=== PATIENT | male | born 1980 | race American Indian/Alaskan Native ===

== ENCOUNTER 2021-06-01 13:40 | Inpatient (IN) ==
[2021-06-01] MEDS ORDERED: GLUCAGON 1 MG VIAL IM PRN (15:20)
[2021-06-01] MEDS ORDERED: DEXTROSE 50% 25 GM/50 ML VIAL IV PRN (15:20)
[2021-06-01] MEDS ORDERED: ONDANSETRON 4 MG/2 ML VIAL IV PRN (15:20)
[2021-06-01 15:37] LABS: ABG Base Excess 0.4 MMOL/L (-2.5-2.5); ABG HCO3 24.7 MMOL/L (20-26); ABG Oxygen Saturation 94.1 % (95-100); ABG PCO2 42.6 MM HG (35-48); ABG PH 7.387 (7.35-7.45); ABG PO2 73.6 MM HG (80-95); ABG TCO2 22.3 MMOL/L (23-27)
[2021-06-01] MEDS: ENOXAPARIN 40 MG/0.4 ML SYRINGE SUBCUT SCH (16:07)
[2021-06-01] MEDS: AZITHROMYCIN 250 MG TABLET PO SCH (16:07)
[2021-06-01 16:20] LABS: Basophils % 0.1 % (0.0-0.8); Hematocrit 42.7 VOL% (42.0-52.0); Hemoglobin 13.8 GM/DL (14.0-18.0); Lymphocytes # 0.6 10*3/uL (1.4-4.0); Lymphocytes % 3.9 % (21.2-54.2); Mean Corpuscular HGB Conc 32.3 GM/DL (32-36); Mean Corpuscular Volume 82.9 FL (87-102); Mean Platelet Volume 9.6 FL (9.6-12.0); Monocytes % 1.7 % (1.7-12.7); Neutrophils % 93.8 % (38.7-73.9); Platelet Count 206 T/CUMM (130-400); Red Blood Count 5.15 MC/CUMM (3.8-5.5); Red Cell Distribution Width 13.8 % (9.3-17.3); White Blood Count 14.9 T/CUMM (4-12)
[2021-06-01] MEDS: DEXAMETHASONE INJ 10 MG in SODIUM CHLORIDE 0.9% 50 ML IV SCH (16:40)
[2021-06-01 16:41] LABS: Lymphocytes 2 % (20-55); Segmented Neutrophils 96 % (50-85); Total Cells Counted 100
[2021-06-01 16:43] LABS: Platelet Estimate Adequate
[2021-06-01] MEDS ORDERED: REMDESIVIR 200 MG in SODIUM CHLORIDE 0.9% 210 ML IV ONE (17:00)
[2021-06-01 17:02] LABS: Albumin 2.6 G/DL (3.4-5.0); Bilirubin,Total 0.7 MG/DL (0.20-1.00); Calcium 8.2 MG/DL (8.5-10.1); Ferritin 1549.7 ng/ml (26-388); Osmolality,Calculated 268.1 MOS/KG (273-304); Potassium 3.6 MMOL/L (3.5-5.1); Total Protein 9.1 G/DL (6.4-8.2)
[2021-06-01] MEDS: FAMOTIDINE 20 MG TABLET PO SCH (21:55)
[2021-06-01] MEDS: INSULIN REGULAR 100 UNIT/ML SUBCUT SCH (22:00)
[2021-06-02 05:26] LABS: Basophils % 0.1 % (0.0-0.8); Hematocrit 42.2 VOL% (42.0-52.0); Lymphocytes # 0.8 10*3/uL (1.4-4.0); Lymphocytes % 5.1 % (21.2-54.2); Mean Corpuscular HGB Conc 33.2 GM/DL (32-36); Mean Corpuscular Volume 83.2 FL (87-102); Mean Platelet Volume 9.8 FL (9.6-12.0); Monocytes % 2.6 % (1.7-12.7); Neutrophils % 91.7 % (38.7-73.9); Platelet Count 229 T/CUMM (130-400); Red Blood Count 5.07 MC/CUMM (3.8-5.5); Red Cell Distribution Width 14.1 % (9.3-17.3); White Blood Count 15.9 T/CUMM (4-12)
[2021-06-02 06:01] LABS: Calcium 8.5 MG/DL (8.5-10.1); Ferritin 1659.6 ng/ml (26-388); Osmolality,Calculated 275.5 MOS/KG (273-304); Potassium 3.5 MMOL/L (3.5-5.1)
[2021-06-02 06:15] LABS: Band Neutrophils 23 % (0-10); Lymphocytes 5 % (20-55); Platelet Estimate Normal; Segmented Neutrophils 67 % (50-85); Total Cells Counted 100
[2021-06-02] MEDS ORDERED: INSULIN REGULAR 100 UNIT/ML SUBCUT SCH (07:30)
[2021-06-02] MEDS: INSULIN REGULAR 100 UNIT/ML SUBCUT SCH ×4 (08:18→21:10)
[2021-06-02] MEDS: CHOLECALCIFEROL 1,000 UNIT TABLET PO SCH (08:19)
[2021-06-02] MEDS: cefTRIAXone 2,000 MG in SODIUM CHLORIDE 0.9% 100 ML IV SCH (08:19)
[2021-06-02] MEDS: AZITHROMYCIN 250 MG TABLET PO SCH (08:19)
[2021-06-02] MEDS: FAMOTIDINE 20 MG TABLET PO SCH ×2 (08:19→21:10)
[2021-06-02] MEDS: ZINC SULFATE 220 MG CAPSULE PO SCH (08:19)
[2021-06-02] MEDS: ASCORBIC ACID 500 MG TABLET PO SCH ×2 (08:19→21:10)
[2021-06-02] MEDS: DEXAMETHASONE INJ 10 MG in SODIUM CHLORIDE 0.9% 50 ML IV SCH (10:16)
[2021-06-02 11:14] LABS: Albumin 2.5 G/DL (3.4-5.0); Bilirubin,Direct 0.18 MG/DL (0.0-0.20); Bilirubin,Indirect 0.4 MG/DL (0.0-1.0); Bilirubin,Total 0.6 MG/DL (0.20-1.00); Total Protein 8.6 G/DL (6.4-8.2)
[2021-06-02] MEDS: REMDESIVIR 100 MG in SODIUM CHLORIDE 0.9% 100 ML IV SCH (13:38)
[2021-06-02 14:13] LABS: ABG Base Excess 1.8 MMOL/L (-2.5-2.5); ABG HCO3 26.6 MMOL/L (20-26); ABG Oxygen Saturation 93.9 % (95-100); ABG PCO2 42.4 MM HG (35-48); ABG PH 7.416 (7.35-7.45); ABG PO2 70.5 MM HG (80-95); ABG TCO2 27.9 MMOL/L (23-27)
[2021-06-02] MEDS: ENOXAPARIN 40 MG/0.4 ML SYRINGE SUBCUT SCH (16:04)
[2021-06-03 03:16] LABS: Basophils % 0.1 % (0.0-0.8); Hematocrit 41.7 VOL% (42.0-52.0); Hemoglobin 13.3 GM/DL (14.0-18.0); Lymphocytes # 0.9 10*3/uL (1.4-4.0); Lymphocytes % 5.5 % (21.2-54.2); Mean Corpuscular HGB Conc 31.9 GM/DL (32-36); Mean Corpuscular Volume 85.3 FL (87-102); Monocytes % 4.5 % (1.7-12.7); Neutrophils % 89.2 % (38.7-73.9); Platelet Count 298 T/CUMM (130-400); Red Blood Count 4.89 MC/CUMM (3.8-5.5); Red Cell Distribution Width 14.2 % (9.3-17.3); White Blood Count 16.6 T/CUMM (4-12)
[2021-06-03 03:43] LABS: Albumin 2.6 G/DL (3.4-5.0); Bilirubin,Total 0.5 MG/DL (0.20-1.00); Calcium 8.8 MG/DL (8.5-10.1); Osmolality,Calculated 270.9 MOS/KG (273-304); Potassium 3.5 MMOL/L (3.5-5.1); Total Protein 8.6 G/DL (6.4-8.2)
[2021-06-03] MEDS: ASCORBIC ACID 500 MG TABLET PO SCH ×2 (08:36→21:13)
[2021-06-03] MEDS: CHOLECALCIFEROL 1,000 UNIT TABLET PO SCH (08:37)
[2021-06-03] MEDS: FAMOTIDINE 20 MG TABLET PO SCH ×2 (08:37→21:13)
[2021-06-03] MEDS: AZITHROMYCIN 250 MG TABLET PO SCH (08:37)
[2021-06-03] MEDS: ZINC SULFATE 220 MG CAPSULE PO SCH (08:37)
[2021-06-03] MEDS: INSULIN REGULAR 100 UNIT/ML SUBCUT SCH ×4 (08:40→21:13)
[2021-06-03] MEDS: cefTRIAXone 2,000 MG in SODIUM CHLORIDE 0.9% 100 ML IV SCH (08:41)
[2021-06-03] MEDS: REMDESIVIR 100 MG in SODIUM CHLORIDE 0.9% 100 ML IV SCH (08:41)
[2021-06-03] MEDS ORDERED: hydrOXYzine HCL 25 MG TABLET PO PRN (12:03)
[2021-06-03] MEDS ORDERED: ALPRAZolam 0.5 MG TABLET PO PRN ×2 (12:06→18:04)
[2021-06-03] MEDS: DEXAMETHASONE INJ 10 MG in SODIUM CHLORIDE 0.9% 50 ML IV SCH (12:07)
[2021-06-03] MEDS: ENOXAPARIN 40 MG/0.4 ML SYRINGE SUBCUT SCH (15:27)
[2021-06-03 15:50] LABS: ABG Base Excess 3.8 MMOL/L (-2.5-2.5); ABG HCO3 27.6 MMOL/L (20-26); ABG Oxygen Saturation 88.9 % (95-100); ABG PCO2 41.8 MM HG (35-48); ABG PH 7.439 (7.35-7.45); ABG PO2 57.5 MM HG (80-95); ABG TCO2 24.4 MMOL/L (23-27); Allen Test Positive; Pt O2 Delivery Device BIPAP
[2021-06-04 01:53] LABS: Basophils % 0.1 % (0.0-0.8); Hematocrit 42.6 VOL% (42.0-52.0); Hemoglobin 13.7 GM/DL (14.0-18.0); Lymphocytes # 0.7 10*3/uL (1.4-4.0); Lymphocytes % 5.7 % (21.2-54.2); Mean Corpuscular HGB Conc 32.2 GM/DL (32-36); Mean Corpuscular Volume 84.7 FL (87-102); Mean Platelet Volume 9.8 FL (9.6-12.0); Monocytes % 5.6 % (1.7-12.7); Neutrophils % 87.7 % (38.7-73.9); Platelet Count 310 T/CUMM (130-400); Red Blood Count 5.03 MC/CUMM (3.8-5.5); Red Cell Distribution Width 14.1 % (9.3-17.3); White Blood Count 12.4 T/CUMM (4-12)
[2021-06-04 02:23] LABS: Albumin 2.6 G/DL (3.4-5.0); Bilirubin,Total 0.7 MG/DL (0.20-1.00); Calcium 8.3 MG/DL (8.5-10.1); Osmolality,Calculated 275.4 MOS/KG (273-304); Potassium 3.5 MMOL/L (3.5-5.1); Total Protein 8.2 G/DL (6.4-8.2)
[2021-06-04 02:31] LABS: Ferritin 1057.7 ng/ml (26-388)
[2021-06-04] MEDS: ASCORBIC ACID 500 MG TABLET PO SCH ×2 (08:35→20:30)
[2021-06-04] MEDS: FAMOTIDINE 20 MG TABLET PO SCH ×2 (08:36→20:30)
[2021-06-04] MEDS: hydrALAZINE 20 MG/1 ML VIAL IV PRN ×2 (08:36→18:09)
[2021-06-04] MEDS: AZITHROMYCIN 250 MG TABLET PO SCH (08:36)
[2021-06-04] MEDS: ZINC SULFATE 220 MG CAPSULE PO SCH (08:36)
[2021-06-04] MEDS: INSULIN REGULAR 100 UNIT/ML SUBCUT SCH ×4 (08:37→20:30)
[2021-06-04] MEDS: cefTRIAXone 2,000 MG in SODIUM CHLORIDE 0.9% 100 ML IV SCH (08:37)
[2021-06-04] MEDS: CHOLECALCIFEROL 1,000 UNIT TABLET PO SCH (08:39)
[2021-06-04] MEDS ORDERED: ENOXAPARIN 100 MG/ML SYRINGE SUBCUT ONE (09:00)
[2021-06-04] MEDS: INSULIN GLARGINE 100 UNIT/ML SUBCUT SCH (10:05)
[2021-06-04] MEDS: DEXAMETHASONE INJ 10 MG in SODIUM CHLORIDE 0.9% 50 ML IV SCH (10:05)
[2021-06-04] MEDS ORDERED: ALPRAZolam 0.5 MG TABLET PO ONE (10:25)
[2021-06-04] MEDS: MORPHINE 2 MG/1 ML SYRINGE IV PRN (10:40)
[2021-06-04] MEDS: REMDESIVIR 100 MG in SODIUM CHLORIDE 0.9% 100 ML IV SCH (13:35)
[2021-06-04] MEDS: lisinopriL 10 MG TABLET PO SCH (15:00)
[2021-06-04] MEDS: ALPRAZolam 0.5 MG TABLET PO PRN (21:28)
[2021-06-05] MEDS: MORPHINE 2 MG/1 ML SYRINGE IV PRN ×3 (00:18→20:23)
[2021-06-05 03:28] LABS: ABG Base Excess 5.3 MMOL/L (-2.5-2.5); ABG HCO3 28.9 MMOL/L (20-26); ABG Oxygen Saturation 87.9 % (95-100); ABG PCO2 43.7 MM HG (35-48); ABG PH 7.446 (7.35-7.45); ABG PO2 56.2 MM HG (80-95)
[2021-06-05 05:21] LABS: Basophils % 0.2 % (0.0-0.8); Eosinophils % 0.2 % (0.00-10.9); Hematocrit 44.6 VOL% (42.0-52.0); Immature Granulocytes % 2.6 %; Immature Granulocytes Absolute 0.34 #; Lymphocytes % 7.8 % (21.2-54.2); Mean Corpuscular HGB Conc 31.4 GM/DL (32-36); Mean Platelet Volume 10.3 FL (9.6-12.0); Monocytes % 4.4 % (1.7-12.7); Neutrophils % 84.8 % (38.7-73.9); Platelet Count 290 T/CUMM (130-400); Red Blood Count 5.25 MC/CUMM (3.8-5.5); Red Cell Distribution Width 14.3 % (9.3-17.3); White Blood Count 13.1 T/CUMM (4-12)
[2021-06-05 05:55] LABS: Albumin 2.5 G/DL (3.4-5.0); Bilirubin,Total 1.1 MG/DL (0.20-1.00); Calcium 8.2 MG/DL (8.5-10.1); Osmolality,Calculated 273.1 MOS/KG (273-304); Potassium 3.2 MMOL/L (3.5-5.1); Total Protein 8.1 G/DL (6.4-8.2)
[2021-06-05] MEDS ORDERED: POTASSIUM CHLORIDE 20 MEQ TABLET PO PRN (08:06)
[2021-06-05] MEDS: INSULIN REGULAR 100 UNIT/ML SUBCUT SCH ×4 (08:54→20:52)
[2021-06-05] MEDS: ASCORBIC ACID 500 MG TABLET PO SCH ×2 (08:57→20:23)
[2021-06-05] MEDS: CHOLECALCIFEROL 1,000 UNIT TABLET PO SCH (08:57)
[2021-06-05] MEDS: INSULIN GLARGINE 100 UNIT/ML SUBCUT SCH (08:57)
[2021-06-05] MEDS: ZINC SULFATE 220 MG CAPSULE PO SCH (08:57)
[2021-06-05] MEDS: lisinopriL 10 MG TABLET PO SCH (08:57)
[2021-06-05] MEDS: FAMOTIDINE 20 MG TABLET PO SCH ×2 (08:57→20:23)
[2021-06-05] MEDS: AZITHROMYCIN 250 MG TABLET PO SCH (08:57)
[2021-06-05] MEDS: cefTRIAXone 2,000 MG in SODIUM CHLORIDE 0.9% 100 ML IV SCH (08:57)
[2021-06-05] MEDS: REMDESIVIR 100 MG in SODIUM CHLORIDE 0.9% 100 ML IV SCH (09:37)
[2021-06-05] MEDS: DEXAMETHASONE INJ 10 MG in SODIUM CHLORIDE 0.9% 50 ML IV SCH (10:00)
[2021-06-05] MEDS: ENOXAPARIN 100 MG/ML SYRINGE SUBCUT SCH ×2 (12:05→23:54)
[2021-06-05] MEDS: POTASSIUM PHOS/SOD PHOS POWDER 250 MG PACK PO SCH ×3 (12:05→20:23)
[2021-06-05] MEDS: ALPRAZolam 0.5 MG TABLET PO PRN ×2 (13:35→20:23)
[2021-06-05] MEDS: hydrALAZINE 20 MG/1 ML VIAL IV PRN (17:00)
[2021-06-05 22:51] LABS: ABG Base Excess 5.4 MMOL/L (-2.5-2.5); ABG Oxygen Saturation 86.2 % (95-100); ABG PCO2 43.2 MM HG (35-48); ABG PO2 52.8 MM HG (80-95); ABG TCO2 26.1 MMOL/L (23-27)
[2021-06-06] MEDS ORDERED: LORazepam 2 MG/1 ML VIAL IV ONE (02:38)
[2021-06-06] MEDS: MORPHINE 2 MG/1 ML SYRINGE IV PRN (02:46)
[2021-06-06] MEDS ORDERED: HALOPERIDOL 5 MG/ML AMP ONE (03:37)
[2021-06-06] MEDS ORDERED: HALOPERIDOL 5 MG/ML AMP IM ONE (03:42)
[2021-06-06] MEDS ORDERED: ETOMIDATE 20 MG/10 ML VIAL IV ONE ×2 (04:22→05:01)
[2021-06-06] MEDS ORDERED: ROCURONIUM 100 MG/10 ML VIAL IV ONE ×2 (04:23→04:40)
[2021-06-06] MEDS ORDERED: SUCCINYLCHOLINE 200 MG/10 ML VIAL ONE (04:29)
[2021-06-06] MEDS ORDERED: SODIUM CHLORIDE 0.9% 500 ML IV ONE (04:43)
[2021-06-06] MEDS ORDERED: propofoL 200 MG/20 ML VIAL IV ONE (05:02)
[2021-06-06 05:06] LABS: ABG Base Excess -2.2 MMOL/L (-2.5-2.5); ABG HCO3 22.2 MMOL/L (20-26); ABG Oxygen Saturation 81.4 % (95-100); ABG PCO2 63.5 MM HG (35-48); ABG PH 7.239 (7.35-7.45); ABG PO2 58.5 MM HG (80-95); ABG TCO2 24.2 MMOL/L (23-27); Allen Test Positive; Pt O2 Delivery Device Ventilator
[2021-06-06] MEDS ORDERED: METOPROLOL TARTRATE 5 MG/5 ML VIAL IV ONE (05:22)
[2021-06-06] MEDS ORDERED: fentaNYL INJ 1,250 MCG in SODIUM CHLORIDE 0.9% 225 ML IV PRN (06:21)
[2021-06-06 06:56] LABS: ABG Base Excess -1.2 MMOL/L (-2.5-2.5); ABG HCO3 23.1 MMOL/L (20-26); ABG Oxygen Saturation 85.4 % (95-100); ABG PH 7.225 (7.35-7.45); ABG PO2 64.6 MM HG (80-95); ABG TCO2 25.8 MMOL/L (23-27)
[2021-06-06 06:58] LABS: ABG PCO2 69.2 MM HG (35-48)
[2021-06-06] MEDS: ROCURONIUM 500 MG in SODIUM CHLORIDE 0.9% 500 ML IV PRN ×2 (07:00→12:37)
[2021-06-06 08:58] LABS: Basophils # 0.1 10*3/uL (0.0-0.2); Basophils % 0.3 % (0.0-0.8); Hematocrit 41.5 VOL% (42.0-52.0); Hemoglobin 12.8 GM/DL (14.0-18.0); Immature Granulocytes % 3.1 %; Lymphocytes # 0.6 10*3/uL (1.4-4.0); Lymphocytes % 2.8 % (21.2-54.2); Mean Corpuscular HGB Conc 30.8 GM/DL (32-36); Mean Corpuscular Volume 87.9 FL (87-102); Mean Platelet Volume 10.1 FL (9.6-12.0); Monocytes % 3.6 % (1.7-12.7); Neutrophils % 90.2 % (38.7-73.9); Platelet Count 331 T/CUMM (130-400); Red Blood Count 4.72 MC/CUMM (3.8-5.5); Red Cell Distribution Width 14.6 % (9.3-17.3); White Blood Count 22.3 T/CUMM (4-12)
[2021-06-06] MEDS ORDERED: MIDAZOLAM 2 MG/2 ML VIAL ONE (09:06)
[2021-06-06] MEDS ORDERED: SODIUM BICARBONATE 50 MEQ/50 ML VIAL IV ONE (09:10)
[2021-06-06] MEDS: NOREPINEPHRINE 8 MG in SODIUM CHLORIDE 0.9% 242 ML IV PRN ×2 (09:15→19:19)
[2021-06-06 09:24] LABS: Band Neutrophils 2 % (0-10); Hypochromasia 1+; Lymphocytes 1 % (20-55); Microcytosis 1+; Platelet Estimate Adequate; Segmented Neutrophils 93 % (50-85); Total Cells Counted 100
[2021-06-06 09:26] LABS: Calcium 7.6 MG/DL (8.5-10.1); Osmolality,Calculated 279.1 MOS/KG (273-304); Potassium 4.1 MMOL/L (3.5-5.1)
[2021-06-06] MEDS ORDERED: MIDAZOLAM 2 MG/2 ML VIAL IV ONE (09:30)
[2021-06-06] MEDS: DEXAMETHASONE INJ 10 MG in SODIUM CHLORIDE 0.9% 50 ML IV SCH (10:20)
[2021-06-06] MEDS: INSULIN REGULAR 100 UNIT/ML SUBCUT SCH ×3 (10:32→18:23)
[2021-06-06] MEDS: FAMOTIDINE 20 MG TABLET PO SCH ×2 (10:33→20:56)
[2021-06-06] MEDS: CHOLECALCIFEROL 1,000 UNIT TABLET PO SCH (10:33)
[2021-06-06] MEDS: ASCORBIC ACID 500 MG TABLET PO SCH ×2 (10:33→20:56)
[2021-06-06] MEDS: INSULIN GLARGINE 100 UNIT/ML SUBCUT SCH (10:33)
[2021-06-06] MEDS: ZINC SULFATE 220 MG CAPSULE PO SCH (10:34)
[2021-06-06] MEDS: MIDAZOLAM 100 MG in SODIUM CHLORIDE 0.9% 80 ML IV PRN ×2 (10:50→17:15)
[2021-06-06] MEDS: lisinopriL 10 MG TABLET PO SCH (10:54)
[2021-06-06] MEDS: fentaNYL INJ 2,500 MCG in SODIUM CHLORIDE 0.9% 75 ML IV PRN ×2 (12:46→20:13)
[2021-06-06] MEDS: cefTRIAXone 2,000 MG in SODIUM CHLORIDE 0.9% 100 ML IV SCH (13:00)
[2021-06-06] MEDS: ENOXAPARIN 100 MG/ML SYRINGE SUBCUT SCH (13:01)
[2021-06-06] MEDS: ROCURONIUM 1,000 MG in SODIUM CHLORIDE 0.9% 175 ML IV PRN (17:30)
[2021-06-06] MEDS ORDERED: INSULIN GLARGINE 100 UNIT/ML SUBCUT ONE (21:00)
[2021-06-07] MEDS: ENOXAPARIN 100 MG/ML SYRINGE SUBCUT SCH ×2 (00:13→13:49)
[2021-06-07] MEDS: INSULIN REGULAR 100 UNIT/ML SUBCUT SCH ×4 (00:13→18:38)
[2021-06-07 04:13] LABS: ABG Base Excess 1.8 MMOL/L (-2.5-2.5); ABG HCO3 28.8 MMOL/L (20-26); ABG Oxygen Saturation 97.9 % (95-100); ABG PCO2 55.5 MM HG (35-48); ABG PH 7.333 (7.35-7.45); ABG PO2 112.5 MM HG (80-95); ABG TCO2 30.5 MMOL/L (23-27)
[2021-06-07] MEDS: fentaNYL INJ 2,500 MCG in SODIUM CHLORIDE 0.9% 75 ML IV PRN ×3 (04:18→18:30)
[2021-06-07] MEDS: ROCURONIUM 1,000 MG in SODIUM CHLORIDE 0.9% 175 ML IV PRN ×2 (04:18→15:31)
[2021-06-07 04:29] LABS: Basophils # 0.1 10*3/uL (0.0-0.2); Basophils % 0.4 % (0.0-0.8); Eosinophils % 0.1 % (0.00-10.9); Hematocrit 39.6 VOL% (42.0-52.0); Hemoglobin 12.2 GM/DL (14.0-18.0); Immature Granulocytes % 5.1 %; Immature Granulocytes Absolute 0.96 #; Lymphocytes # 0.7 10*3/uL (1.4-4.0); Lymphocytes % 3.5 % (21.2-54.2); Mean Corpuscular HGB Conc 30.8 GM/DL (32-36); Mean Corpuscular Volume 88.8 FL (87-102); Mean Platelet Volume 9.5 FL (9.6-12.0); Monocytes % 4.6 % (1.7-12.7); Neutrophils % 86.3 % (38.7-73.9); Platelet Count 424 T/CUMM (130-400); Red Blood Count 4.46 MC/CUMM (3.8-5.5); Red Cell Distribution Width 15.1 % (9.3-17.3); White Blood Count 18.9 T/CUMM (4-12)
[2021-06-07 04:53] LABS: Calcium 7.3 MG/DL (8.5-10.1); Osmolality,Calculated 288.7 MOS/KG (273-304); Potassium 4.3 MMOL/L (3.5-5.1)
[2021-06-07 04:54] LABS: Lymphocytes 3 % (20-55); Platelet Estimate Increased; Segmented Neutrophils 92 % (50-85); Total Cells Counted 100
[2021-06-07] MEDS: MIDAZOLAM 100 MG in SODIUM CHLORIDE 0.9% 80 ML IV PRN ×4 (06:02→21:53)
[2021-06-07] MEDS: FAMOTIDINE 20 MG TABLET PO SCH ×2 (08:34→20:54)
[2021-06-07] MEDS: ZINC SULFATE 220 MG CAPSULE PO SCH (08:34)
[2021-06-07] MEDS: ASCORBIC ACID 500 MG TABLET PO SCH ×2 (08:34→20:54)
[2021-06-07] MEDS: cefTRIAXone 2,000 MG in SODIUM CHLORIDE 0.9% 100 ML IV SCH (08:35)
[2021-06-07] MEDS: INSULIN GLARGINE 100 UNIT/ML SUBCUT SCH (08:35)
[2021-06-07] MEDS: DEXAMETHASONE INJ 10 MG in SODIUM CHLORIDE 0.9% 50 ML IV SCH (08:35)
[2021-06-07] MEDS: CHOLECALCIFEROL 1,000 UNIT TABLET PO SCH (08:36)
[2021-06-08] MEDS: ENOXAPARIN 100 MG/ML SYRINGE SUBCUT SCH ×2 (00:29→12:27)
[2021-06-08] MEDS: INSULIN REGULAR 100 UNIT/ML SUBCUT SCH ×4 (00:29→17:40)
[2021-06-08] MEDS: fentaNYL INJ 2,500 MCG in SODIUM CHLORIDE 0.9% 75 ML IV PRN ×3 (02:38→18:24)
[2021-06-08] MEDS: ROCURONIUM 1,000 MG in SODIUM CHLORIDE 0.9% 175 ML IV PRN ×2 (02:44→17:30)
[2021-06-08 03:22] LABS: ABG Base Excess 1.8 MMOL/L (-2.5-2.5); ABG HCO3 28.8 MMOL/L (20-26); ABG Oxygen Saturation 96.5 % (95-100); ABG PCO2 55.5 MM HG (35-48); ABG PH 7.333 (7.35-7.45); ABG PO2 91.2 MM HG (80-95); ABG TCO2 30.5 MMOL/L (23-27)
[2021-06-08 04:24] LABS: Basophils # 0.1 10*3/uL (0.0-0.2); Basophils % 0.4 % (0.0-0.8); Hematocrit 39.8 VOL% (42.0-52.0); Hemoglobin 12.1 GM/DL (14.0-18.0); Immature Granulocytes % 6.8 %; Lymphocytes # 0.6 10*3/uL (1.4-4.0); Lymphocytes % 3.9 % (21.2-54.2); Mean Corpuscular HGB Conc 30.4 GM/DL (32-36); Mean Corpuscular Volume 90.5 FL (87-102); Mean Platelet Volume 9.7 FL (9.6-12.0); Monocytes % 7.4 % (1.7-12.7); Neutrophils % 81.5 % (38.7-73.9); Platelet Count 408 T/CUMM (130-400); White Blood Count 14.8 T/CUMM (4-12)
[2021-06-08 04:44] LABS: Bilirubin,Total 0.4 MG/DL (0.20-1.00); Calcium 7.7 MG/DL (8.5-10.1); Osmolality,Calculated 297.5 MOS/KG (273-304); Potassium 4.5 MMOL/L (3.5-5.1); Total Protein 7.2 G/DL (6.4-8.2)
[2021-06-08 05:19] LABS: Hypochromasia 1+; Lymphocytes 3 % (20-55); Segmented Neutrophils 88 % (50-85); Total Cells Counted 100
[2021-06-08 05:20] LABS: Microcytosis 1+
[2021-06-08] MEDS: MIDAZOLAM 100 MG in SODIUM CHLORIDE 0.9% 80 ML IV PRN ×3 (05:32→20:31)
[2021-06-08] MEDS: FAMOTIDINE 20 MG TABLET PO SCH ×2 (08:06→21:48)
[2021-06-08] MEDS: CHOLECALCIFEROL 1,000 UNIT TABLET PO SCH (08:06)
[2021-06-08] MEDS: INSULIN GLARGINE 100 UNIT/ML SUBCUT SCH (08:06)
[2021-06-08] MEDS: ZINC SULFATE 220 MG CAPSULE PO SCH (08:06)
[2021-06-08] MEDS: cefTRIAXone 2,000 MG in SODIUM CHLORIDE 0.9% 100 ML IV SCH (08:07)
[2021-06-08] MEDS: ASCORBIC ACID 500 MG TABLET PO SCH ×2 (08:07→21:48)
[2021-06-08] MEDS: NOREPINEPHRINE 8 MG in SODIUM CHLORIDE 0.9% 242 ML IV PRN (10:08)
[2021-06-08] MEDS: DEXAMETHASONE INJ 10 MG in SODIUM CHLORIDE 0.9% 50 ML IV SCH (10:35)
[2021-06-09] MEDS: INSULIN REGULAR 100 UNIT/ML SUBCUT SCH ×4 (00:57→18:22)
[2021-06-09] MEDS: ENOXAPARIN 100 MG/ML SYRINGE SUBCUT SCH ×3 (00:58→23:49)
[2021-06-09] MEDS: fentaNYL INJ 2,500 MCG in SODIUM CHLORIDE 0.9% 75 ML IV PRN ×3 (01:09→18:54)
[2021-06-09 03:30] LABS: ABG HCO3 28.2 MMOL/L (20-26); ABG Oxygen Saturation 95.2 % (95-100); ABG PCO2 55.9 MM HG (35-48); ABG PO2 82.3 MM HG (80-95); ABG TCO2 29.9 MMOL/L (23-27)
[2021-06-09] MEDS: MIDAZOLAM 100 MG in SODIUM CHLORIDE 0.9% 80 ML IV PRN ×3 (03:46→19:31)
[2021-06-09 07:26] LABS: Basophils # 0.1 10*3/uL (0.0-0.2); Basophils % 0.4 % (0.0-0.8); Eosinophils % 0.1 % (0.00-10.9); Hematocrit 38.4 VOL% (42.0-52.0); Immature Granulocytes % 5.8 %; Immature Granulocytes Absolute 0.84 #; Lymphocytes # 0.5 10*3/uL (1.4-4.0); Lymphocytes % 3.3 % (21.2-54.2); Mean Corpuscular HGB Conc 30.5 GM/DL (32-36); Mean Corpuscular Volume 91.4 FL (87-102); Monocytes % 10.3 % (1.7-12.7); Neutrophils % 80.1 % (38.7-73.9); Platelet Count 458 T/CUMM (130-400); Red Cell Distribution Width 15.4 % (9.3-17.3); White Blood Count 14.6 T/CUMM (4-12)
[2021-06-09 07:30] LABS: Hemoglobin 11.7 GM/DL (14.0-18.0)
[2021-06-09 07:35] LABS: Band Neutrophils 4 % (0-10); Hypochromasia 1+; Lymphocytes 1 % (20-55); Microcytosis 1+; Platelet Estimate Increased; Segmented Neutrophils 88 % (50-85); Total Cells Counted 100
[2021-06-09] MEDS: INSULIN GLARGINE 100 UNIT/ML SUBCUT SCH (08:15)
[2021-06-09] MEDS: ACETAMINOPHEN 325 MG TABLET PO PRN ×2 (08:16→12:39)
[2021-06-09] MEDS: ASCORBIC ACID 500 MG TABLET PO SCH ×2 (08:16→20:22)
[2021-06-09] MEDS: CHOLECALCIFEROL 1,000 UNIT TABLET PO SCH (08:16)
[2021-06-09] MEDS: ZINC SULFATE 220 MG CAPSULE PO SCH (08:16)
[2021-06-09] MEDS: FAMOTIDINE 20 MG TABLET PO SCH ×2 (08:16→20:22)
[2021-06-09] MEDS: cefTRIAXone 2,000 MG in SODIUM CHLORIDE 0.9% 100 ML IV SCH (08:17)
[2021-06-09] MEDS: DEXAMETHASONE INJ 10 MG in SODIUM CHLORIDE 0.9% 50 ML IV SCH (09:35)
[2021-06-09] MEDS ORDERED: POLYETHYLENE GLYCOL POWDER 17 GM PACK PO PRN (16:32)
[2021-06-09 18:27] LABS: Calcium 7.9 MG/DL (8.5-10.1); Potassium 5.2 MMOL/L (3.5-5.1)
[2021-06-10] MEDS: INSULIN REGULAR 100 UNIT/ML SUBCUT SCH ×2 (00:03→05:35)
[2021-06-10] MEDS: NOREPINEPHRINE 8 MG in SODIUM CHLORIDE 0.9% 242 ML IV PRN (00:04)
[2021-06-10] MEDS: fentaNYL INJ 2,500 MCG in SODIUM CHLORIDE 0.9% 75 ML IV PRN ×4 (00:05→18:26)
[2021-06-10] MEDS: MIDAZOLAM 100 MG in SODIUM CHLORIDE 0.9% 80 ML IV PRN ×4 (01:11→21:46)
[2021-06-10 03:44] LABS: Osmolality,Calculated 318.7 MOS/KG (273-304); Potassium 5.3 MMOL/L (3.5-5.1)
[2021-06-10 03:49] LABS: Basophils # 0.1 10*3/uL (0.0-0.2); Basophils % 0.4 % (0.0-0.8); Hematocrit 38.3 VOL% (42.0-52.0); Hemoglobin 11.5 GM/DL (14.0-18.0); Immature Granulocytes % 4.7 %; Immature Granulocytes Absolute 0.63 #; Lymphocytes # 0.5 10*3/uL (1.4-4.0); Lymphocytes % 3.4 % (21.2-54.2); Mean Corpuscular Volume 92.1 FL (87-102); Mean Platelet Volume 9.6 FL (9.6-12.0); Monocytes % 8.9 % (1.7-12.7); Neutrophils % 82.6 % (38.7-73.9); Platelet Count 378 T/CUMM (130-400); Red Blood Count 4.16 MC/CUMM (3.8-5.5); Red Cell Distribution Width 15.1 % (9.3-17.3); White Blood Count 13.4 T/CUMM (4-12)
[2021-06-10 04:04] LABS: Band Neutrophils 2 % (0-10); Lymphocytes 6 % (20-55); Platelet Estimate Adequate; Segmented Neutrophils 87 % (50-85); Total Cells Counted 100
[2021-06-10 04:05] LABS: Hypochromasia Slight; Microcytosis Slight
[2021-06-10 05:01] LABS: ABG Base Excess 2.8 MMOL/L (-2.5-2.5); ABG HCO3 26.7 MMOL/L (20-26); ABG PCO2 53.2 MM HG (35-48); ABG PH 7.351 (7.35-7.45); ABG PO2 61.1 MM HG (80-95); ABG TCO2 26.5 MMOL/L (23-27)
[2021-06-10] MEDS: ROCURONIUM 1,000 MG in SODIUM CHLORIDE 0.9% 175 ML IV PRN ×2 (06:36→17:45)
[2021-06-10] MEDS: CHOLECALCIFEROL 1,000 UNIT TABLET PO SCH (08:39)
[2021-06-10] MEDS: ZINC SULFATE 220 MG CAPSULE PO SCH (08:39)
[2021-06-10] MEDS: ASCORBIC ACID 500 MG TABLET PO SCH ×2 (08:39→20:01)
[2021-06-10] MEDS: FAMOTIDINE 20 MG TABLET PO SCH (08:39)
[2021-06-10] MEDS ORDERED: INSULIN GLARGINE 100 UNIT/ML SUBCUT SCH (09:00)
[2021-06-10] MEDS: DEXAMETHASONE INJ 10 MG in SODIUM CHLORIDE 0.9% 50 ML IV SCH (11:05)
[2021-06-10] MEDS: ENOXAPARIN 100 MG/ML SYRINGE SUBCUT SCH ×2 (11:41→23:21)
[2021-06-10] MEDS: INSULIN LISPRO 100 UNIT/ML SUBCUT SCH ×4 (11:41→23:22)
[2021-06-10] MEDS ORDERED: FUROSEMIDE 40 MG/4 ML VIAL IV ONE (16:18)
[2021-06-10] MEDS: MINERAL OIL/PETROLATUM OPH OINT 3.5 GM TUBE BOTH EYES SCH ×2 (16:20→20:01)
[2021-06-11] MEDS: fentaNYL INJ 2,500 MCG in SODIUM CHLORIDE 0.9% 75 ML IV PRN ×3 (02:01→17:15)
[2021-06-11] MEDS: INSULIN LISPRO 100 UNIT/ML SUBCUT SCH ×5 (03:22→20:26)
[2021-06-11] MEDS: ROCURONIUM 1,000 MG in SODIUM CHLORIDE 0.9% 175 ML IV PRN ×2 (03:22→14:45)
[2021-06-11 04:11] LABS: Basophils % 0.2 % (0.0-0.8); Eosinophils # 0.1 10*3/uL (0.0-0.87); Eosinophils % 0.6 % (0.00-10.9); Hematocrit 37.5 VOL% (42.0-52.0); Immature Granulocytes % 3.1 %; Immature Granulocytes Absolute 0.55 #; Lymphocytes # 0.9 10*3/uL (1.4-4.0); Lymphocytes % 4.8 % (21.2-54.2); Mean Corpuscular HGB Conc 29.6 GM/DL (32-36); Mean Corpuscular Volume 92.8 FL (87-102); Mean Platelet Volume 9.9 FL (9.6-12.0); Monocytes % 7.2 % (1.7-12.7); Neutrophils % 84.1 % (38.7-73.9); Platelet Count 320 T/CUMM (130-400); Red Blood Count 4.04 MC/CUMM (3.8-5.5); Red Cell Distribution Width 15.4 % (9.3-17.3)
[2021-06-11 04:18] LABS: Hemoglobin 11.1 GM/DL (14.0-18.0)
[2021-06-11 04:21] LABS: Albumin 2.2 G/DL (3.4-5.0); Bilirubin,Total 0.4 MG/DL (0.20-1.00); Calcium 8.2 MG/DL (8.5-10.1); Ferritin 806.5 ng/ml (26-388); Potassium 4.7 MMOL/L (3.5-5.1); Total Protein 6.7 G/DL (6.4-8.2)
[2021-06-11 04:24] LABS: Osmolality,Calculated 321.4 MOS/KG (273-304)
[2021-06-11 04:35] LABS: Hypochromasia 1+; Lymphocytes 3 % (20-55); Microcytosis 1+; Platelet Estimate Adequate; Segmented Neutrophils 92 % (50-85); Total Cells Counted 100
[2021-06-11] MEDS: ACETAMINOPHEN 325 MG TABLET PO PRN ×3 (04:36→17:00)
[2021-06-11] MEDS: MIDAZOLAM 100 MG in SODIUM CHLORIDE 0.9% 80 ML IV PRN ×2 (04:37→11:20)
[2021-06-11 05:00] LABS: Bilirubin,Urine Negative (Negative); Blood, Urine Moderate mg/dL (Negative); Glucose,Urine (UA) Negative (Negative); Ketones,Urine Negative (Negative); Mucus,Urine Occasional /LPF (Occasional); Nitrite,Urine Negative (Negative); Protein,Urine Negative; RBC,Urine 23 /HPF (0-4); Squamous Epithelial Cell,Urine Occasional /HPF (0-10); Uric Acid Crystals,Urine Moderate /HPF (<1); Urine Appearance CLOUDY (Clear); Urine Color Yellow (Yellow); Urine Specific Gravity 1.017 (1.001-1.035); Urine Urobilinogen < 2.0 EU/DL (0.2-1.0)
[2021-06-11 05:01] LABS: ABG Base Excess 2.7 MMOL/L (-2.5-2.5); ABG HCO3 26.7 MMOL/L (20-26); ABG Oxygen Saturation 92.8 % (95-100); ABG PCO2 50.8 MM HG (35-48); ABG PH 7.364 (7.35-7.45); ABG PO2 69.5 MM HG (80-95)
[2021-06-11] MEDS: FUROSEMIDE 100 MG/10 ML VIAL IV SCH (09:30)
[2021-06-11] MEDS: INSULIN GLARGINE 100 UNIT/ML SUBCUT SCH (10:33)
[2021-06-11] MEDS: DEXAMETHASONE 10 MG/1 ML VIAL IV SCH (10:33)
[2021-06-11] MEDS: ZINC SULFATE 220 MG CAPSULE PO SCH (10:34)
[2021-06-11] MEDS: MINERAL OIL/PETROLATUM OPH OINT 3.5 GM TUBE BOTH EYES SCH ×3 (10:34→20:27)
[2021-06-11] MEDS: CHOLECALCIFEROL 1,000 UNIT TABLET PO SCH (10:34)
[2021-06-11] MEDS: ASCORBIC ACID 500 MG TABLET PO SCH ×2 (10:34→20:27)
[2021-06-11] MEDS: FAMOTIDINE 20 MG TABLET PO SCH (10:34)
[2021-06-11] MEDS: MEROPENEM 500 MG in SODIUM CHLORIDE 0.9% 100 ML IV SCH ×2 (11:26→17:50)
[2021-06-11] MEDS ORDERED: VANCOMYCIN INJ 3,000 MG in SODIUM CHLORIDE 0.9% 500 ML IV ONE (12:00)
[2021-06-11] MEDS: ENOXAPARIN 100 MG/ML SYRINGE SUBCUT SCH (12:30)
[2021-06-12] MEDS: ENOXAPARIN 100 MG/ML SYRINGE SUBCUT SCH ×2 (00:44→12:59)
[2021-06-12] MEDS: INSULIN LISPRO 100 UNIT/ML SUBCUT SCH ×6 (00:44→23:09)
[2021-06-12] MEDS: MEROPENEM 500 MG in SODIUM CHLORIDE 0.9% 100 ML IV SCH ×3 (00:45→17:32)
[2021-06-12] MEDS: ACETAMINOPHEN 325 MG TABLET PO PRN ×2 (00:46→05:34)
[2021-06-12] MEDS: fentaNYL INJ 2,500 MCG in SODIUM CHLORIDE 0.9% 75 ML IV PRN ×3 (00:46→18:06)
[2021-06-12] MEDS: ROCURONIUM 1,000 MG in SODIUM CHLORIDE 0.9% 175 ML IV PRN ×2 (01:12→12:53)
[2021-06-12] MEDS: MIDAZOLAM 100 MG in SODIUM CHLORIDE 0.9% 80 ML IV PRN ×4 (01:12→23:11)
[2021-06-12 03:55] LABS: Osmolality,Calculated 335.1 MOS/KG (273-304); Potassium 5.2 MMOL/L (3.5-5.1)
[2021-06-12 03:59] LABS: Ferritin 1509.1 ng/ml (26-388)
[2021-06-12 04:07] LABS: Basophils % 0.2 % (0.0-0.8); Eosinophils % 0.1 % (0.00-10.9); Hematocrit 36.5 VOL% (42.0-52.0); Hemoglobin 10.8 GM/DL (14.0-18.0); Immature Granulocytes % 2.4 %; Immature Granulocytes Absolute 0.43 #; Lymphocytes # 0.5 10*3/uL (1.4-4.0); Lymphocytes % 2.5 % (21.2-54.2); Mean Corpuscular HGB Conc 29.6 GM/DL (32-36); Mean Corpuscular Volume 92.9 FL (87-102); Mean Platelet Volume 10.4 FL (9.6-12.0); Monocytes % 2.9 % (1.7-12.7); Neutrophils % 91.9 % (38.7-73.9); Platelet Count 256 T/CUMM (130-400); Red Blood Count 3.93 MC/CUMM (3.8-5.5); Red Cell Distribution Width 15.3 % (9.3-17.3); White Blood Count 17.7 T/CUMM (4-12)
[2021-06-12 04:17] LABS: Lymphocytes 2 % (20-55); Platelet Estimate Adequate; Segmented Neutrophils 93 % (50-85); Total Cells Counted 100
[2021-06-12 04:18] LABS: Hypochromasia 1+; Microcytosis 1+
[2021-06-12 04:42] LABS: ABG Base Excess 2.8 MMOL/L (-2.5-2.5); ABG HCO3 26.6 MMOL/L (20-26); ABG Oxygen Saturation 81.8 % (95-100); ABG PCO2 48.9 MM HG (35-48); ABG PH 7.377 (7.35-7.45); ABG PO2 47.8 MM HG (80-95)
[2021-06-12] MEDS: INSULIN GLARGINE 100 UNIT/ML SUBCUT SCH ×2 (09:30→12:17)
[2021-06-12] MEDS: FAMOTIDINE 20 MG TABLET PO SCH (09:46)
[2021-06-12] MEDS: ZINC SULFATE 220 MG CAPSULE PO SCH (09:46)
[2021-06-12] MEDS: FUROSEMIDE 100 MG/10 ML VIAL IV SCH (09:47)
[2021-06-12] MEDS: ASCORBIC ACID 500 MG TABLET PO SCH ×2 (09:47→23:10)
[2021-06-12] MEDS: DEXAMETHASONE 10 MG/1 ML VIAL IV SCH ×2 (09:47→23:10)
[2021-06-12] MEDS: MINERAL OIL/PETROLATUM OPH OINT 3.5 GM TUBE BOTH EYES SCH ×3 (09:50→23:10)
[2021-06-12] MEDS: CHOLECALCIFEROL 1,000 UNIT TABLET PO SCH (09:57)
[2021-06-12] MEDS: FLUCONAZOLE INJ 200 MG/100 ML PREMIX IV SCH (12:57)
[2021-06-12] MEDS ORDERED: VANCOMYCIN INJ 3,000 MG in SODIUM CHLORIDE 0.9% 500 ML IV ONE (13:00)
[2021-06-12] MEDS ORDERED: DEXAMETHASONE 10 MG/1 ML VIAL IV SCH (16:30)
[2021-06-12 22:42] LABS: Calcium 7.7 MG/DL (8.5-10.1); Potassium 5.3 MMOL/L (3.5-5.1)
[2021-06-13] MEDS: ROCURONIUM 1,000 MG in SODIUM CHLORIDE 0.9% 175 ML IV PRN ×2 (00:06→12:02)
[2021-06-13] MEDS: ENOXAPARIN 100 MG/ML SYRINGE SUBCUT SCH ×2 (00:09→13:15)
[2021-06-13] MEDS: INSULIN LISPRO 100 UNIT/ML SUBCUT SCH ×4 (00:09→14:13)
[2021-06-13] MEDS: MEROPENEM 500 MG in SODIUM CHLORIDE 0.9% 100 ML IV SCH ×3 (00:10→21:24)
[2021-06-13] MEDS: fentaNYL INJ 2,500 MCG in SODIUM CHLORIDE 0.9% 75 ML IV PRN ×3 (00:50→18:59)
[2021-06-13 03:58] LABS: ABG Base Excess -0.6 MMOL/L (-2.5-2.5); ABG HCO3 23.8 MMOL/L (20-26); ABG Oxygen Saturation 89.7 % (95-100); ABG PCO2 66.1 MM HG (35-48); ABG PO2 66.5 MM HG (80-95); ABG TCO2 26.2 MMOL/L (23-27)
[2021-06-13 04:49] LABS: Albumin 1.9 G/DL (3.4-5.0); Basophils % 0.1 % (0.0-0.8); Bilirubin,Total 0.4 MG/DL (0.20-1.00); Calcium 7.6 MG/DL (8.5-10.1); Hematocrit 36.7 VOL% (42.0-52.0); Immature Granulocytes Absolute 0.41 #; Lymphocytes # 0.5 10*3/uL (1.4-4.0); Lymphocytes % 2.3 % (21.2-54.2); Mean Corpuscular HGB Conc 28.3 GM/DL (32-36); Mean Corpuscular Volume 96.6 FL (87-102); Mean Platelet Volume 11.1 FL (9.6-12.0); NRBC # 0.02 10*3/uL; Neutrophils % 91.6 % (38.7-73.9); Osmolality,Calculated 347.9 MOS/KG (273-304); Platelet Count 219 T/CUMM (130-400); Potassium 5.6 MMOL/L (3.5-5.1); Red Cell Distribution Width 15.2 % (9.3-17.3); Total Protein 6.4 G/DL (6.4-8.2); White Blood Count 20.9 T/CUMM (4-12)
[2021-06-13 04:56] LABS: Hemoglobin 10.4 GM/DL (14.0-18.0)
[2021-06-13 05:06] LABS: Lymphocytes 1 % (20-55); Platelet Estimate Normal; Segmented Neutrophils 95 % (50-85); Total Cells Counted 100
[2021-06-13] MEDS ORDERED: SODIUM POLYSTYRENE SULFATE 15 GM/60 ML BOTTLE PO ONE ×2 (08:40→14:49)
[2021-06-13] MEDS: DEXAMETHASONE 10 MG/1 ML VIAL IV SCH ×2 (10:04→20:00)
[2021-06-13] MEDS: ZINC SULFATE 220 MG CAPSULE PO SCH (10:05)
[2021-06-13] MEDS: CHOLECALCIFEROL 1,000 UNIT TABLET PO SCH (10:05)
[2021-06-13] MEDS: FLUCONAZOLE INJ 200 MG/100 ML PREMIX IV SCH (10:05)
[2021-06-13] MEDS: FAMOTIDINE 20 MG TABLET PO SCH (10:05)
[2021-06-13] MEDS: ASCORBIC ACID 500 MG TABLET PO SCH ×2 (10:05→20:00)
[2021-06-13] MEDS: MINERAL OIL/PETROLATUM OPH OINT 3.5 GM TUBE BOTH EYES SCH ×3 (10:06→21:26)
[2021-06-13] MEDS: INSULIN GLARGINE 100 UNIT/ML SUBCUT SCH (10:06)
[2021-06-13] MEDS: ACETAMINOPHEN 325 MG TABLET PO PRN ×3 (10:45→19:58)
[2021-06-13] MEDS: MIDAZOLAM 100 MG in SODIUM CHLORIDE 0.9% 80 ML IV PRN ×2 (13:01→21:00)
[2021-06-13] MEDS ORDERED: VANCOMYCIN INJ 2,000 MG in SODIUM CHLORIDE 0.9% 500 ML IV PRN (13:13)
[2021-06-13 14:34] LABS: Calcium 7.3 MG/DL (8.5-10.1); Osmolality,Calculated 353.7 MOS/KG (273-304); Potassium 5.8 MMOL/L (3.5-5.1)
[2021-06-13] MEDS ORDERED: INSULIN REGULAR 10 UNIT, CALCIUM GLUCONATE 1,000 MG in DEXTROSE 10% 250 ML IV ONE (15:00)
[2021-06-13] MEDS: INSULIN REGULAR DRIP 100 ML IV PRN ×2 (15:44→19:59)
[2021-06-13 22:00] LABS: Calcium 7.7 MG/DL (8.5-10.1); Osmolality,Calculated 349.7 MOS/KG (273-304); Potassium 5.4 MMOL/L (3.5-5.1)
[2021-06-14] MEDS ORDERED: ENOXAPARIN 100 MG/ML SYRINGE SUBCUT SCH
[2021-06-14] MEDS: INSULIN REGULAR DRIP 100 ML IV PRN ×3 (02:05→19:24)
[2021-06-14 03:08] LABS: ABG Base Excess -3.4 MMOL/L (-2.5-2.5); ABG HCO3 26.2 MMOL/L (20-26); ABG Oxygen Saturation 95.2 % (95-100); ABG PO2 91.3 MM HG (80-95); ABG TCO2 28.4 MMOL/L (23-27)
[2021-06-14 03:21] LABS: ABG PCO2 73.7 MM HG (35-48); ABG PH 7.168 (7.35-7.45)
[2021-06-14] MEDS: fentaNYL INJ 2,500 MCG in SODIUM CHLORIDE 0.9% 75 ML IV PRN (03:41)
[2021-06-14 04:46] LABS: Calcium 7.7 MG/DL (8.5-10.1); Ferritin 1281.1 ng/ml (26-388); Osmolality,Calculated 346.9 MOS/KG (273-304); Potassium 5.9 MMOL/L (3.5-5.1)
[2021-06-14 05:18] LABS: Basophils % 0.1 % (0.0-0.8); Hematocrit 38.2 VOL% (42.0-52.0); Hemoglobin 10.7 GM/DL (14.0-18.0); Immature Granulocytes % 1.2 %; Immature Granulocytes Absolute 0.24 #; Lymphocytes # 0.5 10*3/uL (1.4-4.0); Lymphocytes % 2.5 % (21.2-54.2); Mean Corpuscular Volume 97.7 FL (87-102); Mean Platelet Volume 11.5 FL (9.6-12.0); Monocytes % 3.7 % (1.7-12.7); NRBC # 0.02 10*3/uL; Neutrophils % 92.5 % (38.7-73.9); Platelet Count 211 T/CUMM (130-400); Red Blood Count 3.91 MC/CUMM (3.8-5.5); Red Cell Distribution Width 15.3 % (9.3-17.3); White Blood Count 19.3 T/CUMM (4-12)
[2021-06-14 05:40] LABS: Hypochromasia 1+; Lymphocytes 2 % (20-55); Microcytosis 1+; Platelet Estimate Adequate; Segmented Neutrophils 97 % (50-85); Total Cells Counted 100
[2021-06-14] MEDS: MIDAZOLAM 100 MG in SODIUM CHLORIDE 0.9% 80 ML IV PRN (06:05)
[2021-06-14] MEDS ORDERED: SODIUM POLYSTYRENE SULFATE 15 GM/60 ML BOTTLE PO ONE (07:27)
[2021-06-14] MEDS ORDERED: INSULIN REGULAR 10 UNIT, CALCIUM GLUCONATE 1,000 MG in DEXTROSE 10% 250 ML IV ONE (08:00)
[2021-06-14 08:30] LABS: Hepatitis B Core IgM Quant 0.17 Index; Hepatitis B Surface Ag Quant 0.13 Index; Hepatitis B Surface Ag Result Non-Reactive (NonReactive); Hepatitis C Virus Ab Quant < 0.02 Index; Hepatitis C Virus Ab Result Non-Reactive (NonReactive)
[2021-06-14] MEDS: MEROPENEM 500 MG in SODIUM CHLORIDE 0.9% 100 ML IV SCH ×2 (10:08→20:33)
[2021-06-14] MEDS: HEPARIN DRIP 25,000 UNITS/500 ML PREMIX IV SCH ×2 (10:08→20:34)
[2021-06-14] MEDS: NOREPINEPHRINE 8 MG in SODIUM CHLORIDE 0.9% 242 ML IV PRN (10:24)
[2021-06-14] MEDS ORDERED: VANCOMYCIN INJ 1,250 MG in SODIUM CHLORIDE 0.9% 250 ML IV PRN (11:00)
[2021-06-14] MEDS: ZINC SULFATE 220 MG CAPSULE PO SCH (11:04)
[2021-06-14] MEDS: DEXAMETHASONE 10 MG/1 ML VIAL IV SCH ×2 (11:04→20:01)
[2021-06-14] MEDS: ASCORBIC ACID 500 MG TABLET PO SCH ×2 (11:04→20:01)
[2021-06-14] MEDS: FAMOTIDINE 20 MG TABLET PO SCH (11:04)
[2021-06-14] MEDS: FLUCONAZOLE INJ 200 MG/100 ML PREMIX IV SCH (11:04)
[2021-06-14] MEDS: CHOLECALCIFEROL 1,000 UNIT TABLET PO SCH (11:04)
[2021-06-14] MEDS: INSULIN GLARGINE 100 UNIT/ML SUBCUT SCH (11:20)
[2021-06-14] MEDS: MINERAL OIL/PETROLATUM OPH OINT 3.5 GM TUBE BOTH EYES SCH (11:21)
[2021-06-14] MEDS: NOREPINEPHRINE 16 MG in SODIUM CHLORIDE 0.9% 234 ML IV PRN (11:45)
[2021-06-14] MEDS ORDERED: HEPARIN 10,000 UNIT/10 ML VIAL IV SCH (12:15)
[2021-06-14 13:52] LABS: ABG Base Excess -2.7 MMOL/L (-2.5-2.5); ABG HCO3 22.1 MMOL/L (20-26); ABG Oxygen Saturation 93.5 % (95-100); ABG PH 7.229 (7.35-7.45); ABG PO2 76.2 MM HG (80-95); ABG TCO2 24.1 MMOL/L (23-27)
[2021-06-14] MEDS ORDERED: VANCOMYCIN INJ 1,250 MG in SODIUM CHLORIDE 0.9% 250 ML IV ONE (15:00)
[2021-06-15 04:05] LABS: Albumin 2.2 G/DL (3.4-5.0); Basophils % 0.2 % (0.0-0.8); Bilirubin,Total 0.4 MG/DL (0.20-1.00); Hemoglobin 10.5 GM/DL (14.0-18.0); Immature Granulocytes % 1.2 %; Immature Granulocytes Absolute 0.31 #; Lymphocytes # 0.4 10*3/uL (1.4-4.0); Lymphocytes % 1.6 % (21.2-54.2); Mean Corpuscular HGB Conc 28.4 GM/DL (32-36); Mean Corpuscular Volume 95.1 FL (87-102); Mean Platelet Volume 11.8 FL (9.6-12.0); Monocytes % 4.4 % (1.7-12.7); Neutrophils % 92.6 % (38.7-73.9); Osmolality,Calculated 341.4 MOS/KG (273-304); Platelet Count 224 T/CUMM (130-400); Potassium 5.6 MMOL/L (3.5-5.1); Red Blood Count 3.89 MC/CUMM (3.8-5.5); Red Cell Distribution Width 14.9 % (9.3-17.3); Total Protein 6.2 G/DL (6.4-8.2); White Blood Count 25.7 T/CUMM (4-12)
[2021-06-15 05:48] LABS: ABG Base Excess -3.5 MMOL/L (-2.5-2.5); ABG HCO3 24.4 MMOL/L (20-26); ABG Oxygen Saturation 94.8 % (95-100); ABG PCO2 58.4 MM HG (35-48); ABG PH 7.239 (7.35-7.45); ABG PO2 82.5 MM HG (80-95); ABG TCO2 26.2 MMOL/L (23-27)
[2021-06-15 08:01] LABS: Band Neutrophils 1 % (0-10); Lymphocytes 2 % (20-55); Platelet Estimate Normal; Polychromasia Slight; Segmented Neutrophils 91 % (50-85); Total Cells Counted 100
[2021-06-15] MEDS: ASCORBIC ACID 500 MG TABLET PO SCH ×2 (08:26→22:49)
[2021-06-15] MEDS: ZINC SULFATE 220 MG CAPSULE PO SCH (08:26)
[2021-06-15] MEDS: CHOLECALCIFEROL 1,000 UNIT TABLET PO SCH (08:26)
[2021-06-15] MEDS: FAMOTIDINE 20 MG TABLET PO SCH (08:26)
[2021-06-15] MEDS: DEXAMETHASONE 10 MG/1 ML VIAL IV SCH ×2 (08:26→22:49)
[2021-06-15] MEDS: INSULIN REGULAR DRIP 100 ML IV PRN ×2 (08:30→21:19)
[2021-06-15] MEDS: HEPARIN DRIP 25,000 UNITS/500 ML PREMIX IV SCH ×2 (10:03→22:46)
[2021-06-15] MEDS: FLUCONAZOLE INJ 200 MG/100 ML PREMIX IV SCH (10:21)
[2021-06-15] MEDS ORDERED: CALCIUM GLUCONATE 1,000 MG in SODIUM CHLORIDE 0.9% 100 ML IV ONE (10:34)
[2021-06-15] MEDS ORDERED: CALCIUM GLUCONATE 1,000 MG/10 ML VIAL IV ONE (10:34)
[2021-06-15] MEDS ORDERED: PHENYLEPHRINE DRIP 40 MG/250 ML PREMIX IV PRN (11:32)
[2021-06-15 13:27] LABS: Calcium 7.9 MG/DL (8.5-10.1); Osmolality,Calculated 310.3 MOS/KG (273-304); Potassium 4.5 MMOL/L (3.5-5.1)
[2021-06-15] MEDS ORDERED: VANCOMYCIN INJ 1,250 MG in SODIUM CHLORIDE 0.9% 250 ML IV ONE (15:00)
[2021-06-15] MEDS: MIDAZOLAM 100 MG in SODIUM CHLORIDE 0.9% 80 ML IV PRN ×2 (15:30→22:46)
[2021-06-15 16:36] LABS: ABG Base Excess -3.9 MMOL/L (-2.5-2.5); ABG Oxygen Saturation 91.5 % (95-100); ABG PO2 80.1 MM HG (80-95); ABG TCO2 26.3 MMOL/L (23-27)
[2021-06-15 16:38] LABS: ABG PH 7.123 (7.35-7.45)
[2021-06-15] MEDS: fentaNYL INJ 2,500 MCG in SODIUM CHLORIDE 0.9% 75 ML IV PRN (21:19)
[2021-06-15] MEDS: NOREPINEPHRINE 16 MG in SODIUM CHLORIDE 0.9% 234 ML IV PRN (22:46)
[2021-06-15] MEDS: MEROPENEM 500 MG in SODIUM CHLORIDE 0.9% 100 ML IV SCH (22:49)
[2021-06-16 04:37] LABS: ABG Base Excess -3.9 MMOL/L (-2.5-2.5); ABG HCO3 24.6 MMOL/L (20-26); ABG Oxygen Saturation 91.8 % (95-100); ABG PCO2 63.6 MM HG (35-48); ABG PO2 73.7 MM HG (80-95); ABG TCO2 26.6 MMOL/L (23-27)
[2021-06-16 04:39] LABS: ABG PH 7.206 (7.35-7.45)
[2021-06-16 05:14] LABS: Calcium 6.9 MG/DL (8.5-10.1); Osmolality,Calculated 323.1 MOS/KG (273-304); Potassium 5.6 MMOL/L (3.5-5.1)
[2021-06-16 05:35] LABS: Ferritin 1870.9 ng/ml (26-388)
[2021-06-16 05:43] LABS: Basophils % 0.1 % (0.0-0.8); Hematocrit 33.3 VOL% (42.0-52.0); Hemoglobin 9.6 GM/DL (14.0-18.0); Immature Granulocytes % 1.7 %; Immature Granulocytes Absolute 0.54 #; Lymphocytes # 0.3 10*3/uL (1.4-4.0); Lymphocytes % 0.8 % (21.2-54.2); Mean Corpuscular HGB Conc 28.8 GM/DL (32-36); Mean Corpuscular Volume 94.6 FL (87-102); Mean Platelet Volume 12.4 FL (9.6-12.0); NRBC # 0.02 10*3/uL; Neutrophils % 92.4 % (38.7-73.9); Platelet Count 248 T/CUMM (130-400); Red Blood Count 3.52 MC/CUMM (3.8-5.5); Red Cell Distribution Width 14.5 % (9.3-17.3); White Blood Count 31.4 T/CUMM (4-12)
[2021-06-16] MEDS: fentaNYL INJ 2,500 MCG in SODIUM CHLORIDE 0.9% 75 ML IV PRN ×3 (06:21→21:36)
[2021-06-16] MEDS: INSULIN REGULAR DRIP 100 ML IV PRN ×2 (06:21→21:36)
[2021-06-16] MEDS: MIDAZOLAM 100 MG in SODIUM CHLORIDE 0.9% 80 ML IV PRN ×3 (06:21→21:36)
[2021-06-16] MEDS ORDERED: SODIUM POLYSTYRENE SULFATE 15 GM/60 ML BOTTLE PO ONE (07:07)
[2021-06-16 08:52] LABS: Hypochromasia 1+; Platelet Estimate Normal; Segmented Neutrophils 94 % (50-85); Total Cells Counted 100
[2021-06-16] MEDS: ZINC SULFATE 220 MG CAPSULE PO SCH (09:06)
[2021-06-16] MEDS: DEXAMETHASONE 10 MG/1 ML VIAL IV SCH ×2 (09:06→21:00)
[2021-06-16] MEDS: CHOLECALCIFEROL 1,000 UNIT TABLET PO SCH (09:06)
[2021-06-16] MEDS: ASCORBIC ACID 500 MG TABLET PO SCH ×2 (09:06→21:00)
[2021-06-16] MEDS: FAMOTIDINE 20 MG TABLET PO SCH (09:06)
[2021-06-16] MEDS: FLUCONAZOLE INJ 200 MG/100 ML PREMIX IV SCH (11:00)
[2021-06-16] MEDS: METOCLOPRAMIDE 10 MG/2 ML VIAL IV SCH ×2 (11:02→18:15)
[2021-06-16] MEDS: HEPARIN DRIP 25,000 UNITS/500 ML PREMIX IV SCH (14:58)
[2021-06-16 15:07] LABS: ABG Base Excess -4.6 MMOL/L (-2.5-2.5); ABG HCO3 20.5 MMOL/L (20-26); ABG Oxygen Saturation 94.5 % (95-100); ABG PO2 93.8 MM HG (80-95); ABG TCO2 25.3 MMOL/L (23-27)
[2021-06-16 15:11] LABS: ABG PCO2 81.1 MM HG (35-48)
[2021-06-16] MEDS: MEROPENEM 500 MG in SODIUM CHLORIDE 0.9% 100 ML IV SCH (21:00)
[2021-06-16] MEDS: NOREPINEPHRINE 16 MG in SODIUM CHLORIDE 0.9% 234 ML IV PRN (22:26)
[2021-06-17] MEDS: METOCLOPRAMIDE 10 MG/2 ML VIAL IV SCH ×4 (01:00→17:29)
[2021-06-17] MEDS: fentaNYL INJ 2,500 MCG in SODIUM CHLORIDE 0.9% 75 ML IV PRN ×3 (04:01→17:55)
[2021-06-17 04:58] LABS: ABG Base Excess -6.8 MMOL/L (-2.5-2.5); ABG HCO3 18.7 MMOL/L (20-26); ABG Oxygen Saturation 89.7 % (95-100); ABG PO2 74.3 MM HG (80-95); ABG TCO2 24.1 MMOL/L (23-27)
[2021-06-17] MEDS: MIDAZOLAM 100 MG in SODIUM CHLORIDE 0.9% 80 ML IV PRN ×3 (05:01→22:03)
[2021-06-17] MEDS: HEPARIN DRIP 25,000 UNITS/500 ML PREMIX IV SCH ×3 (05:01→22:19)
[2021-06-17 05:13] LABS: ABG PCO2 83.5 MM HG (35-48); ABG PH 7.082 (7.35-7.45)
[2021-06-17 05:27] LABS: Basophils # 0.1 10*3/uL (0.0-0.2); Basophils % 0.2 % (0.0-0.8); Hematocrit 31.8 VOL% (42.0-52.0); Hemoglobin 9.3 GM/DL (14.0-18.0); Immature Granulocytes % 1.8 %; Immature Granulocytes Absolute 0.76 #; Lymphocytes # 0.4 10*3/uL (1.4-4.0); Mean Corpuscular HGB Conc 29.2 GM/DL (32-36); Mean Corpuscular Volume 94.6 FL (87-102); Mean Platelet Volume 11.8 FL (9.6-12.0); Monocytes % 4.5 % (1.7-12.7); NRBC # 0.06 10*3/uL; Neutrophils % 92.5 % (38.7-73.9); Platelet Count 271 T/CUMM (130-400); Red Blood Count 3.36 MC/CUMM (3.8-5.5); Red Cell Distribution Width 14.5 % (9.3-17.3)
[2021-06-17 05:51] LABS: White Blood Count 41.3 T/CUMM (4-12)
[2021-06-17 06:04] LABS: Band Neutrophils 1 % (0-10); Eosinophils 1 % (0-10); Lymphocytes 2 % (20-55); Platelet Estimate Normal; Segmented Neutrophils 91 % (50-85); Total Cells Counted 100
[2021-06-17 06:16] LABS: Calcium 6.8 MG/DL (8.5-10.1); Osmolality,Calculated 334.4 MOS/KG (273-304)
[2021-06-17 06:18] LABS: Potassium 6.7 MMOL/L (3.5-5.1)
[2021-06-17] MEDS: DEXAMETHASONE 10 MG/1 ML VIAL IV SCH ×2 (08:33→20:30)
[2021-06-17] MEDS: ASCORBIC ACID 500 MG TABLET PO SCH ×2 (08:33→20:31)
[2021-06-17] MEDS: CHOLECALCIFEROL 1,000 UNIT TABLET PO SCH (08:37)
[2021-06-17] MEDS: ZINC SULFATE 220 MG CAPSULE PO SCH (08:37)
[2021-06-17 09:25] LABS: ABG Base Excess -6.7 MMOL/L (-2.5-2.5); ABG HCO3 18.5 MMOL/L (20-26); ABG Oxygen Saturation 65.7 % (95-100); ABG TCO2 24.2 MMOL/L (23-27)
[2021-06-17 09:27] LABS: ABG PCO2 83.4 MM HG (35-48); ABG PH 7.082 (7.35-7.45)
[2021-06-17] MEDS: INSULIN REGULAR DRIP 100 ML IV PRN (10:46)
[2021-06-17] MEDS: FLUCONAZOLE INJ 200 MG/100 ML PREMIX IV SCH (12:50)
[2021-06-17] MEDS ORDERED: NOREPINEPHRINE 4 MG/4 ML VIAL IV ONE ×2 (13:35→21:15)
[2021-06-17] MEDS: NOREPINEPHRINE 16 MG in SODIUM CHLORIDE 0.9% 234 ML IV PRN ×3 (14:04→21:19)
[2021-06-17] MEDS ORDERED: VANCOMYCIN INJ 1,250 MG in SODIUM CHLORIDE 0.9% 250 ML IV ONE (15:00)
[2021-06-17] MEDS: FAMOTIDINE 20 MG TABLET PO SCH (15:50)
[2021-06-17] MEDS: MEROPENEM 500 MG in SODIUM CHLORIDE 0.9% 100 ML IV SCH (20:30)
[2021-06-18] MEDS: METOCLOPRAMIDE 10 MG/2 ML VIAL IV SCH ×4 (00:31→17:32)
[2021-06-18] MEDS: NOREPINEPHRINE 16 MG in SODIUM CHLORIDE 0.9% 234 ML IV PRN ×6 (01:04→21:30)
[2021-06-18] MEDS: INSULIN REGULAR DRIP 100 ML IV PRN (01:05)
[2021-06-18] MEDS: ACETAMINOPHEN 325 MG TABLET PO PRN (01:13)
[2021-06-18] MEDS: fentaNYL INJ 2,500 MCG in SODIUM CHLORIDE 0.9% 75 ML IV PRN ×3 (03:09→20:30)
[2021-06-18 03:29] LABS: Basophils # 0.1 10*3/uL (0.0-0.2); Basophils % 0.1 % (0.0-0.8); Hematocrit 26.3 VOL% (42.0-52.0); Hemoglobin 7.8 GM/DL (14.0-18.0); Immature Granulocytes Absolute 1.17 #; Lymphocytes # 0.5 10*3/uL (1.4-4.0); Lymphocytes % 1.3 % (21.2-54.2); Mean Corpuscular HGB Conc 29.7 GM/DL (32-36); Mean Corpuscular Volume 92.9 FL (87-102); Mean Platelet Volume 11.4 FL (9.6-12.0); Monocytes % 4.3 % (1.7-12.7); NRBC # 0.19 10*3/uL; Neutrophils % 91.3 % (38.7-73.9); Platelet Count 239 T/CUMM (130-400); Red Blood Count 2.83 MC/CUMM (3.8-5.5); Red Cell Distribution Width 14.4 % (9.3-17.3); White Blood Count 39.5 T/CUMM (4-12)
[2021-06-18 03:29] LABS: ABG Base Excess -4.7 MMOL/L (-2.5-2.5); ABG HCO3 24.8 MMOL/L (20-26); ABG Oxygen Saturation 88.6 % (95-100); ABG PO2 68.7 MM HG (80-95); ABG TCO2 27.1 MMOL/L (23-27)
[2021-06-18 03:35] LABS: ABG PH 7.137 (7.35-7.45)
[2021-06-18 03:36] LABS: ABG PCO2 74.9 MM HG (35-48)
[2021-06-18] MEDS ORDERED: SODIUM BICARBONATE 50 MEQ/50 ML VIAL IV ONE ×2 (03:48→05:57)
[2021-06-18 03:52] LABS: Band Neutrophils 1 % (0-10); Hypochromasia 1+; Lymphocytes 1 % (20-55); Microcytosis 1+; Platelet Estimate Adequate; Segmented Neutrophils 92 % (50-85); Total Cells Counted 100
[2021-06-18 03:59] LABS: Calcium 6.3 MG/DL (8.5-10.1); Osmolality,Calculated 320.3 MOS/KG (273-304); Potassium 5.7 MMOL/L (3.5-5.1)
[2021-06-18] MEDS: MIDAZOLAM 100 MG in SODIUM CHLORIDE 0.9% 80 ML IV PRN ×3 (04:22→19:40)
[2021-06-18 05:50] LABS: ABG Base Excess -4.5 MMOL/L (-2.5-2.5); ABG HCO3 25.1 MMOL/L (20-26); ABG Oxygen Saturation 88.7 % (95-100); ABG PO2 69.8 MM HG (80-95); ABG TCO2 27.4 MMOL/L (23-27); Allen Test Positive; Pt O2 Delivery Device Ventilator
[2021-06-18 05:52] LABS: ABG PCO2 74.8 MM HG (35-48); ABG PH 7.144 (7.35-7.45)
[2021-06-18] MEDS: FAMOTIDINE 20 MG TABLET PO SCH (08:17)
[2021-06-18] MEDS: ZINC SULFATE 220 MG CAPSULE PO SCH (08:17)
[2021-06-18] MEDS: DEXAMETHASONE 10 MG/1 ML VIAL IV SCH ×2 (08:17→23:18)
[2021-06-18] MEDS: ASCORBIC ACID 500 MG TABLET PO SCH ×2 (08:18→23:18)
[2021-06-18] MEDS: CHOLECALCIFEROL 1,000 UNIT TABLET PO SCH (08:18)
[2021-06-18] MEDS: FLUCONAZOLE INJ 200 MG/100 ML PREMIX IV SCH (09:46)
[2021-06-18] MEDS: INSULIN GLARGINE 100 UNIT/ML SUBCUT SCH (10:36)
[2021-06-18] MEDS ORDERED: INSULIN LISPRO 100 UNIT/ML SUBCUT SCH (12:00)
[2021-06-18 13:45] LABS: INR 1.2; PT Patient Result 13.5 SECS (10.5-12.0)
[2021-06-18 13:59] LABS: Partial Thromboplastin Time 117.1 SECS (23.9-33.8)
[2021-06-18] MEDS: HEPARIN DRIP 25,000 UNITS/500 ML PREMIX IV SCH (14:08)
[2021-06-18] MEDS: INSULIN LISPRO 100 UNIT/ML SUBCUT SCH ×2 (16:11→23:18)
[2021-06-18 18:39] LABS: INR 1.3
[2021-06-18 18:46] VITALS: BP 91/43
[2021-06-18 18:55] LABS: Partial Thromboplastin Time 107.9 SECS (23.9-33.8)
[2021-06-18] MEDS: MEROPENEM 500 MG in SODIUM CHLORIDE 0.9% 100 ML IV SCH (23:15)
[2021-06-19] MEDS: NOREPINEPHRINE 16 MG in SODIUM CHLORIDE 0.9% 234 ML IV PRN ×5 (01:15→11:30)
[2021-06-19 01:51] LABS: INR 1.4; PT Patient Result 15.6 SECS (10.5-12.0)
[2021-06-19] MEDS: METOCLOPRAMIDE 10 MG/2 ML VIAL IV SCH ×3 (01:51→11:20)
[2021-06-19] MEDS: INSULIN LISPRO 100 UNIT/ML SUBCUT SCH ×4 (01:52→11:25)
[2021-06-19 02:00] LABS: Partial Thromboplastin Time 119.3 SECS (23.9-33.8)
[2021-06-19] MEDS: MIDAZOLAM 100 MG in SODIUM CHLORIDE 0.9% 80 ML IV PRN (02:35)
[2021-06-19 03:46] LABS: ABG HCO3 22.2 MMOL/L (20-26); ABG Oxygen Saturation 84.4 % (95-100); ABG PO2 68.6 MM HG (80-95); ABG TCO2 24.7 MMOL/L (23-27)
[2021-06-19] MEDS: ACETAMINOPHEN 325 MG TABLET PO PRN ×2 (03:50→09:02)
[2021-06-19 04:17] LABS: ABG PH 7.053 (7.35-7.45)
[2021-06-19 04:18] LABS: ABG PCO2 81.5 MM HG (35-48)
[2021-06-19] MEDS: fentaNYL INJ 2,500 MCG in SODIUM CHLORIDE 0.9% 75 ML IV PRN (05:02)
[2021-06-19 05:23] LABS: Basophils # 0.1 10*3/uL (0.0-0.2); Basophils % 0.2 % (0.0-0.8); Hematocrit 22.7 VOL% (42.0-52.0); Hemoglobin 6.9 GM/DL (14.0-18.0); Immature Granulocytes % 4.8 %; Immature Granulocytes Absolute 1.51 #; Lymphocytes # 0.7 10*3/uL (1.4-4.0); Lymphocytes % 2.1 % (21.2-54.2); Mean Corpuscular HGB Conc 30.4 GM/DL (32-36); Mean Corpuscular Volume 92.7 FL (87-102); Mean Platelet Volume 11.7 FL (9.6-12.0); Monocytes % 3.5 % (1.7-12.7); Neutrophils % 89.4 % (38.7-73.9); Platelet Count 235 T/CUMM (130-400); Red Blood Count 2.45 MC/CUMM (3.8-5.5); Red Cell Distribution Width 15.1 % (9.3-17.3); White Blood Count 31.7 T/CUMM (4-12)
[2021-06-19 05:41] LABS: Osmolality,Calculated 329.8 MOS/KG (273-304)
[2021-06-19 05:42] LABS: Calcium 5.7 MG/DL (8.5-10.1); Potassium 7.5 MMOL/L (3.5-5.1)
[2021-06-19 05:46] LABS: Band Neutrophils 2 % (0-10); Eosinophils 1 % (0-10); Hypochromasia 2+; Lymphocytes 4 % (20-55); Microcytosis 1+; Platelet Estimate Adequate; Segmented Neutrophils 92 % (50-85); Total Cells Counted 100
[2021-06-19] MEDS ORDERED: NOREPINEPHRINE 4 MG/4 ML VIAL IV ONE (07:03)
[2021-06-19] MEDS: HEPARIN DRIP 25,000 UNITS/500 ML PREMIX IV SCH (07:17)
[2021-06-19] MEDS: DEXAMETHASONE 10 MG/1 ML VIAL IV SCH (08:00)
[2021-06-19] MEDS: INSULIN GLARGINE 100 UNIT/ML SUBCUT SCH (08:05)
[2021-06-19] MEDS: ASCORBIC ACID 500 MG TABLET PO SCH (08:06)
[2021-06-19] MEDS: CHOLECALCIFEROL 1,000 UNIT TABLET PO SCH (08:06)
[2021-06-19] MEDS: FAMOTIDINE 20 MG TABLET PO SCH (08:06)
[2021-06-19] MEDS: ZINC SULFATE 220 MG CAPSULE PO SCH (08:06)
[2021-06-19] MEDS: FLUCONAZOLE INJ 200 MG/100 ML PREMIX IV SCH (09:37)
[2021-06-19] MEDS ORDERED: NOREPINEPHRINE 32 MG in SODIUM CHLORIDE 0.9% 468 ML IV PRN (11:41)
== END 2021-06-19 12:30 | disposition expired | DRG 207 ==
LOC: EDSEX → SUATTDRO → N.ED 13:40 → N.EDINP 15:20 → SUATTDRO 15:20 → N.EDINP 20:31 → N.2E 21:26 → N.CC 06-03 15:04
PROVIDERS: ADMIT Emergency Medicine; ATTEND Internal Medicine